=== PATIENT | male | born 1965 | race Caucasian/White ===

== ENCOUNTER 2022-03-17 18:56 | Emergency (ER) | payer OTHER, SELFPAY ==
[2022-03-17] VITALS (8 sets, daily range): BP systolic 125–149; BP diastolic 82–99; PULSE 87–99; RESP 16–18; TEMP 38.2; O2SAT 94–99; BMI 26.5
[2022-03-17 20:14] LABS: Strep A DNA Probe* Not Detected (Not Detectd)
--- NOTE | 2022-03-17 20:29 | ED.URI ---
HPI - URI/Sore Throat General Time Seen by Provider: 20:29 Date Seen: 03/17/22 Chief Complaint: Sore Throat Stated Complaint: Extreme Sore Throat Time Seen by Provider: 03/17/22 20:29 Source: patient and RN notes reviewed Mode of arrival: ambulatory Limitations: no limitations History of Present Illness HPI Narrative: patient is a very pleasant 57-year-old gentleman lying on the bed in room 1 who takes a statin and is otherwise healthy who comes to the emergency room for evaluation regarding sore throat. Patient noted that he had a scratchy throat on SaturdayMarch 14. On he came home and went to bed because he was not feeling well. He notes a sore throat in association with episodes of sweating and a headache since that time. Tonight his sore throat was much worse and thus he asked his to bring him to the emergency room. He denies any difficulty breathing, abdominal pain, diarrhea or vomiting. He is unsure if he has had a fever but he notes episodes of sweating. there was of somebody at work with illness unknown cause. No known exposures to strep. Related Data Home Medications Medication Instructions Recorded Confirmed rosuvastatin 20 mg tablet 20 mg PO HS 03/17/22 03/17/22 trazodone 50 mg tablet 50 mg PO HS 03/17/22 03/17/22 Allergies Allergy/AdvReac Type Severity Reaction Status Date / Time No Known Drug Allergies Allergy Verified 03/17/22 19:30 Review of Systems Status of ROS: Reports: 10 or more systems reviewed and unremarkable except as noted in History and below Const: Reports: chills; Denies: fever ENMT: Reports: throat pain, throat swelling, difficulty swallowing and hoarseness; Denies: neck pain Cardio: Denies: chest pain or shortness of breath with exertion Resp: Denies: shortness of breath, cough or wheezing GI: Reports: difficulty swallowing; Denies: abdominal pain, nausea, vomiting or diarrhea : Denies: painful urination Musculo: Denies: neck pain or extremity swelling Integ/Breast: Denies: rash Neuro: Reports: headache Allergy/Immuno: Reports: throat swelling; Denies: wheezing PFSH PFS Medical History ASHD (arteriosclerotic heart disease) CAD (coronary artery disease) Dyslipidemia Essential hypertension EDGAR (obstructive sleep apnea) Rotator cuff tear, left Surgical History History of coronary angioplasty with insertion of stent History of shoulder surgery Social History Smoking Status: Never smoker Do you use any of these nicotine containing products: None Second hand tobacco smoke exposure: No How often do you have a drink containing alcohol: never How often do you have six or more drinks on one occasion: Never AUDIT-C Alcohol total score: 0 Non-prescribed substance use: denies use Exam Narrative: Exam Narrative: Patient is awake and oriented. He is obviously uncomfortable. Lying flat on his back and not participating in any tripoding positioning however. Eyes are clear. TMs without erythema or fluid. Nose without rhinitis. Diaphoretic. Oral cavity with moist mucous membranes. There is soft tissue swelling in the posterior oropharynx. No specific asymmetry. Airway appears patent neck is supple. Positive anterior cervical lymphadenopathy. Lungs are clear in all lung helm. Heart is with regular rate and rhythm. Abdomen soft nontender. Lower extremities without edema. Const: Vital Signs, click to edit/add: Vital Signs - 24 hr 03/17/22 19:30 Temperature 100.8 F H Pulse Rate [Right Pulse Oximeter] 99 Respiratory Rate 18 Blood Pressure [Ri ght Upper Arm] 149/92 H Pulse Oximetry 99 Oxygen Delivery Me thod Room Air Documenting provider has reviewed patient's vital signs: yes Course Course Hospital Course: Patient has tested positive for COVID and is negative for strep. Influenza is pending. Patient is not vaccinated. Patient notes testing positive for COVID once in the past but was asymptomatic at that time. A subsequent test was negative. At this time oxygen saturations are reassuring but patient is having difficulty swallowing. He does have some mild voice changes as well. Pain seems it out of proportion to exam. Would suggest CT soft tissue neck and patient is aches receptive of this. Will place IV and give 1 L of normal saline as well as Toradol 15 mg IV while awaiting lab values to include a CBC, comprehensive count panel, CRP. Vital Signs Vital signs: Initial Vital Signs Respiratory Effort Spontaneous 03/17/22 19:28 Respiratory Depth Normal 03/17/22 19:28 Respiratory Pattern 03/17/22 19:28 Vital Signs Temperature 100.8 F H 03/17/22 19:30 Pulse Rate 99 03/17/22 19:30 Respiratory Rate 18 03/17/22 19:30 Blood Pressure 149/92 H 03/17/22 19:30 Pulse Oximetry 99 03/17/22 19:30 Oxygen Delivery Method 03/17/22 19:30 Temperature 100.8 F H 03/17/22 19:30 Pulse Rate 99 03/17/22 19:30 Respiratory Rate 18 03/17/22 19:30 Blood Pressure 149/92 H 03/17/22 19:30 Pulse Oximetry 99 03/17/22 19:30 Oxygen Delivery Method 03/17/22 19:30 MDM - URI/Sore Throat MDM Narrative Medical decision making narrative: 1. COVID 2. Pharyngitis 3. Disposition Medical Records Attestation: I reviewed the patient's medical records. Lab Data Attestation: I reviewed the patient's lab results. Labs: Lab Results 03/17/22 03/17/22 03/17/22 Range/Units 19:27 19:30 19:30 SARS-CoV-2 (PCR) POSITIVE SARS-CoV-2 A Cancelled (Negative) Influenza Type A (PCR) Cancelled Influenza Type B (PCR) Cancelled Group A Strep DNA Not Detected (Not Detectd) Imaging Data soft t tissue neck CT: Attestation: I have reviewed the pertinent imaging results. Discharge Plan Discharge Prescriptions: No Action rosuvastatin 20 mg tablet 20 mg PO HS trazodone 50 mg tablet 50 mg PO HS Follow Up/Referrals: Hussein Cuadra MD [Primary Care Provider] -
--- NOTE | 2022-03-17 20:50 | CRLHL7_ITS ---
For Patients: As a result of the Century Cures Act, medical imaging exams and procedure reports are released immediately into your electronic medical record. You may view this report before your referring provider. If you have questions, please contact your health care provider. INDICATION: Difficulty swallowing. TECHNIQUE: CT soft tissue of the neck was acquired with 93 cc Isovue 370 IV contrast. COMPARISON: None. FINDINGS: Skull base: Unremarkable. Pharynx/Larynx/Trachea: Epiglottis is normal. Airway is patent. Small left pontine tonsilliths. Adjacent soft tissues are otherwise normal. Salivary glands: Unremarkable. Thyroid gland: Unremarkable. No significant nodules. Lymph nodes: No lymphadenopathy. Vessels: Unremarkable for age. Bones: Unremarkable for age. Misc: No inflammation, mass or fluid collection. Lung apices: Unremarkable. IMPRESSION: Unremarkable soft tissue CT of the neck. Please note that all CT scans at this facility use dose modulation, iterative reconstruction, and/or weight-based dosing when appropriate to reduce radiation dose to as low as reasonably achievable. Dictated by Toni Bowen MD @ 03/17/2022 10:09:14 PM (Electronically Signed)
[2022-03-17] MEDS: 0.9 % SODIUM CHLORIDE 1000 ml 1,000 ML IV (21:00)
[2022-03-17] MEDS: KETOROLAC 15 MG/ML inj IVP (21:00)
[2022-03-17 21:09] LABS: Basophils Absolute Auto 0.02 K/uL (0.00-0.30); Basophils Percent Auto 0.3 % (0.0-3.0); Eosinophils Absolute Auto 0.03 K/uL (0.00-0.50); Eosinophils Percent Auto 0.4 % (0.0-7.0); Hematocrit 47.2 % (37.0-53.0); Immature Granulocytes Abs Auto 0.01 K/uL (0.00-0.30); Immature Granulocytes Pct Auto 0.1 %; Lymphocytes Percent Auto 16.8 % (20-44); Mean Corpuscular HGB Conc 34 gm/dL (32-36); Mean Corpuscular Hemoglobin 30 pg (26-34); Mean Corpuscular Volume 88 fL (80-100); Neutrophils Absolute Auto 5.27 K/uL (1.7-7.0); Neutrophils Percent Auto 69.4 % (42.0-72.0); Platelet Count* 160 K/uL (140-440); RDW Coefficient of Variation % 11.2 % (11.5-15.5); Red Blood Count 5.38 m/uL (4.30-5.90)
[2022-03-17 21:12] LABS: Slide Review Reflex No
[2022-03-17 21:15] LABS: Albumin* 4.5 g/dL (3.3-5.0); Chloride* 105 mmol/L (96-114)
[2022-03-17 21:16] LABS: Potassium* 4.2 mmol/L (3.6-5.1); Sodium* 138 mmol/L (135-149)
[2022-03-17 21:18] LABS: Bilirubin Total* 0.7 mg/dL (0.1-1.5); Creatinine* 0.9 mg/dL (0.5-1.5); Est. Creatinine Clearance* 96.45; Estimated Glomerular Filt Rate 100 ml/min
[2022-03-17 21:19] LABS: Alanine Aminotransferase* 41 U/L (4-50); Alkaline Phosphatase* 54 U/L (40-150); Aspartate Amino Transferase* 29 U/L (12-35); Blood Urea Nitrogen* 18 mg/dL (7-30); Calcium* 9.2 mg/dL (8.4-10.6); Carbon Dioxide* 25 mmol/L (20-32); Glucose* 150 mg/dL (60-115); Total Protein* 7.6 g/dL (6.0-8.3)
[2022-03-17 23:01] LABS: PCR FLU A Negative PCR FLU A (Negative); PCR FLU B Negative PCR FLU B (Negative)
[2022-03-17 23:52] LABS: SARS PCR* POSITIVE SARS-CoV-2 (Negative)
== END 2022-03-17 22:38 | disposition home or self-care (01) ==
PROVIDERS: Emergency Provider Family Medicine; PCP Family Medicine
DX: U07.1 COVID-19 (principal)
CPT/HCPCS: 36415; 70491; 80053; 85025; 86140; 87631; 87635; 87651; 94761; 96374; 99284; 99285; J1885; J7030; Q9967